=== PATIENT | female | born 1995 | race Caucasian/White ===

== ENCOUNTER 2018-05-08 02:52 | Emergency (ER) | payer MEDICAID ==
[~2018-05-08] VITALS: Ht 154.9 cm; Wt 78.1 kg
[2018-05-08 06:14] VITALS: BP 120/72
== END 2018-05-08 06:18 | disposition home or self-care (01) ==
LOC: ER 02:52
DX: M25.512 Pain in left shoulder (principal)
CPT/HCPCS: 73030; 81025; 99284